=== PATIENT | male | born 1980 | race Native Hawaiian/Other Pacific Islander ===

== ENCOUNTER → 2023-03-21 | Outpatient (CLI) | payer BC ==
[2023-03-21 18:58] LABS: HCT 42.9 % (39.6-50.0); HGB 14.1 g/dL (13.0-17.0); MCH 27.6 pg (27.0-32.0); MCHC 32.9 g/dL (32.0-37.0); Mean Platelet Volume 10.9 FL (9.5-12.2); NRBC Per 100 WBC 0 X 10*3/uL (0.00-0.01); Platelet Count 255 X 10*3/uL (140-440); RBC 5.11 X 10*6/uL (4.40-5.60); RDW 12.7 % (11.5-14.5); WBC 6.43 X 10*3/uL (4.50-10.00)
[2023-03-21 19:01] LABS: Blood Urea Nitrogen 7.7 mg/dL (9.0-27.0)
== END | disposition home or self-care (01) ==
LOC: LABPAT 13:58
PROVIDERS: ATTEND Internal Medicine Interventional Cardiology
DX: Z01.812 Encounter for preprocedural laboratory examination (principal); I25.2 Old myocardial infarction
CPT/HCPCS: 36415; 82565; 84520; 85027

== ENCOUNTER 2023-03-22 09:08 | Day surgery (SDC) | payer BC ==
[2023-03-16 15:58] VITALS: BMI 30.1
[~2023-03-22 09:08] MED LIST: ALPRAZolam 0.25 MG TAB PO PRN; ALPRAZolam 0.5 MG TAB PO PRN; ASPIRIN 325 MG TAB PO STA; HEPARIN SODIUM,PORCINE (1 ML) 2,500 UNIT in SODIUM CHLORIDE 0.9% 250 ML IRRIGATION PRN; HEPARIN SODIUM,PORCINE 10,000 UNIT in SODIUM CHLORIDE 0.9% 1,000 ML IRRIGATION PRN; NITROGLYCERIN SL TABS 0.4 MG TAB SUBLINGUAL PRN; SODIUM CHLORIDE 0.9% 1,000 ML in EMPTY BAG 1 BAG IV SCH
[2023-03-22 09:51] VITALS: RESP 18; TEMP 97.1
[2023-03-22] MEDS ORDERED: HEPARIN SODIUM 1,000 UN/ML (10ML VL) ONE (10:00)
[2023-03-22] MEDS ORDERED: MIDAZOLAM 2 MG/2 ML VIAL IVP ONE (10:10)
[2023-03-22] MEDS ORDERED: LIDOCAINE 1% INJ 10MG/ML (30 ML VIAL-PF) SQ ONE (10:12)
[2023-03-22] MEDS ORDERED: fentaNYL (PF) 50 MCG/ML 2 ML AMP ONE (10:12)
[2023-03-22] MEDS ORDERED: VERAPAMIL SYRINGE (5 MG/10 ML) INTRAARTER ONE (10:14)
[2023-03-22] MEDS ORDERED: fentaNYL (PF) 50 MCG/ML 2 ML AMP IVP ONE (10:14)
[2023-03-22] MEDS: HEPARIN SODIUM 1,000 UN/ML (10ML VL) IV ONE ×2 (10:20→11:03)
[2023-03-22 10:32] LABS: African American GFR (CKD) >90 (>60 ml/min/1.73 sqM); Anion Gap 10 mmol/L; Blood Urea Nitrogen 10 mg/dL (9-20); Calcium 9.1 mg/dL (8.4-10.2); Carbon Dioxide 28 mmol/L (22-30); Chloride 104 mmol/L (98-107); Glucose 106 mg/dL (74-99); Non-African American GFR(CKD) >90 (>60 ml/min/1.73 sqM); Sodium 142 mmol/L (137-145)
[2023-03-22] MEDS ORDERED: IOPAMIDOL-370 100ML BTL INJ ONE ×2 (10:46→11:04)
[2023-03-22] MEDS ORDERED: NITROGLYCERIN 1000MCG/10ML SYRINGE INTRACORON ONE (10:49)
[2023-03-22] MEDS ORDERED: CLOPIDOGREL 75 MG TAB ONE (10:54)
[2023-03-22] MEDS ORDERED: CLOPIDOGREL 75 MG TAB PO ONE (11:04)
[2023-03-22] MEDS ORDERED: SODIUM CHLORIDE 0.9% 1,000 ML IV SCH (12:15)
--- NOTE | 2023-03-22 13:44 | CC ---
PTCA REPORT Date of Service: 03/22/23 PROCEDURES PERFORMED: PTCA and stenting of proximal obtuse marginal branch of circumflex. PERFORMED BY: Dr. Domingo Vera. ANESTHESIA: Moderate conscious sedation time was 50 minutes. Patient was administered Versed and fentanyl. Oxygen saturation, hemodynamics, and EKG were monitored closely. CLINICAL INFORMATION: Mr. Mitchell Trejo is a 43-year-old gentleman who presented on January 30 with acute inferior IN, underwent stenting of a RCA that was totally occluded with a lot of thrombus. He was advised to come back for staged intervention of circumflex which had 80% lesion. There was also a secondary branch coming off the circumflex marginal which was a chronic total occlusion. LAD had noncritical moderate disease. He was advised to have a repeat procedure, brought in for that electively after due discussion with the patient and regarding the risks, benefits, and options. PROCEDURE NOTE: Under strict aseptic precautions and local anesthesia, a 6-Yakut introducer was placed in right radial artery. Using a JR4 diagnostic catheter, I performed selective injection of the right coronary artery noted that it was widely patent with excellent flow. I then turned my attention to the left circumflex coronary artery. Initially, I tried a JL4 guide catheter, but because of extreme tortuosity of the brachiocephalic artery, I had difficulty cannulating it. I then used a Voda 3.5 guide catheter of 6- [place] caliber. With the wire, I was able to cannulate the left coronary artery. A run-through wire was used to cross the lesion. Predilatation was performed with a 2.5 caliber, 12 mm long NC Trek balloon. I then deployed an 18 mm long 3.25 caliber Xience stent in the proximal portion of the lesion. Distally, there was a small area of haziness. This was addressed with a 3.0 caliber 8 mm long Xience stent. Excellent angiographic result was achieved. The patient had chest pain, but no EKG changes. His ACT initially was over 300. Repeat ECT after end of the procedure was 183. The patient's weight is 107 kg and I gave him 7000 units of heparin. Additional 1000 units of heparin was given. He received 225 mg of Plavix. He will be on aspirin and Plavix without interruption for 1 year. Excellent angiographic result without complication was achieved. Results were discussed with the patient and and I expect he will be discharged later on today if he remains stable and he will be seen by Dr. Barker in 1 week. The sheath was taken out and TR band applied as per protocol with saturation in the fingers of the right hand of 96%. MMODL / IJN: [id number] / MTDD
[2023-03-22 16:08] VITALS: BP 139/85; PULSE 75
--- NOTE | 2023-03-23 09:12 | CA ---
Transthoracic Echo Report Name: Mitchell Trejo Age: 43 Gender: M : 1980 Exam Date: 03/22/2023 13:34 Exam Location: [facility] Ht (in): 72 Wt (lb): 236 Ordering Physician: Zhao Vera MD Attending/Referring Phys: Thread Cutter Emily Walker RDCS Procedure CPT: Indications: POST STUDY - LV FUNCTION/WALL MOTION Cardiac Hx: Technical Quality: Fair Contrast 1: Definity Total Dose (mL): 2 Contrast 2: Total Dose (mL): MEASUREMENTS (Male / Female) Normal Values 2D ECHO LV Diastolic Diameter PLAX 4.2 cm 4.2 - 5.9 / 3.9 - 5.3 cm LV Systolic Diameter PLAX 3.3 cm IVS Diastolic Thickness 1.6 cm 0.6 - 1.0 / 0.6 - 0.9 cm LVPW Diastolic Thickness 1.3 cm 0.6 - 1.0 / 0.6 - 0.9 cm LV Relative Wall Thickness 0.7 LV Diastolic Volume MOD BP 103.6 cm??? 67 - 155 / 56 - 104 cm??? LV Systolic Volume MOD BP 59.4 cm??? 22 - 58 / 19 - 49 cm??? LV Ejection Fraction MOD BP 42.7 % >= 55 % LV Cardiac Index MOD BP 1479.2 cm???/min???m??? LV Diastolic Volume MOD 4C 118.3 cm??? LV Systolic Volume MOD 4C 65.5 cm??? LV Ejection Fraction MOD 4C 44.7 % LV Cardiac Index MOD 4C 1768.3 cm???/min???m??? LV Diastolic Length 4C 8.5 cm LV Systolic Length 4C 8.0 cm LV Diastolic Volume MOD 2C 107.8 cm??? LV Systolic Volume MOD 2C 43.3 cm??? LV Ejection Fraction MOD 2C 59.9 % LV Cardiac Index MOD 2C 2158.8 cm???/min???m??? LV Diastolic Length 2C 8.4 cm LV Systolic Length 2C 6.4 cm FINDINGS Left Ventricle Mildly increased left ventricular wall thickness. Left ventricular cavity size normal. Mild inferobasal, basal inferior wall hypokinesis, preserved systolic function. Left ventricular ejection fraction is estimated at 50 -55 %. Right Ventricle Right Atrium Left Atrium Mitral Valve No mitral regurgitation. Aortic Valve Tricuspid Valve Pulmonic Valve Pericardium No pericardial effusion. Aorta CONCLUSIONS Normal LV size. Mild inferobasal and inferoseptal hypokinesia ejection fraction nearly 50%. No mitral regurgitation of significance. No pericardial effusion Previewed by: Dr. Zhao Vera MD (Electronically Signed) Final Date: 23 March 2023 09:11
== END 2023-03-22 16:29 | disposition home or self-care (01) ==
LOC: CATHCVL 09:08 → MERGE 10:30 → CATHCVL 16:29
PROVIDERS: ATTEND Internal Medicine Interventional Cardiology
DX: I25.10 Atherosclerotic heart disease of native coronary artery without angina pectoris (principal); I25.2 Old myocardial infarction; I10 Essential (primary) hypertension; E78.5 Hyperlipidemia, unspecified; F12.90 Cannabis use, unspecified, uncomplicated; F17.210 Nicotine dependence, cigarettes, uncomplicated; Z79.82 Long term (current) use of aspirin; Z79.899 Other long term (current) drug therapy; Z95.5 Presence of coronary angioplasty implant and graft; Z82.49 Family history of ischemic heart disease and other diseases of the circulatory system
CPT/HCPCS: 93308; 80048; C9600; C1887 ×2; C1769 ×2; C1894; C1874 ×2; C1725; J2250; J2001; J3010; Q9957; J1644; Q9967; J2305

== ENCOUNTER → 2023-04-23 | Outpatient (CLI) | payer BC ==
--- NOTE | 2023-04-23 11:22 | P.SLEEP ---
History of Present Illness DATE: 04/23/2023 CONSULTATION/NEW PATIENT EVALUATION HISTORY OF PRESENT ILLNESS/SLEEP-WAKE EVALUATION: 43 year old gentleman had been evaluated in the sleep center for possible obstructive sleep apnea hypopnea syndrome. SLEEP SCHEDULE: Usually sleep schedule from 11 PM to 6:30 AM on weekdays and from 11-12 PM to 7 AM on weekend. FALLING ASLEEP: No problems with falling to sleep. DURING SLEEP: Patient has loud snoring and witnessed by his episodes of stop breathing during the sleep. Patient wakes up from sleep 3 times with nocturia. No history of hypnogogical hallucinations, sleep paralysis, or cataplexy. DURING THE DAY/WAKE STATE: Sometimes patient feels sleepiness at afternoon time. [place] sleepiness scale is 4. Usually patient doesn't take naps. PAST MEDICAL HISTORY: Coronary artery disease, status post PR, hyperlipidemia. PAST SURGICAL HISTORY: Status post stents insertions to coronary arteries in 2022. MEDICATIONS: Lipitor 80 mg once a day, losartan 50 mg once a day, Coreg 6.25 mg twice a day, Plavix 75 mg once a day. SOCIAL HISTORY: Positive history of smoking, no alcohol consumption occasional. FAMILY HISTORY: Coronary artery disease. REVIEW OF SYSTEMS: Loud snoring, multiple awakenings from sleep. No fevers. No double vision. No recent chest pain. No shortness of breath. No abdominal pain. No bleeding episodes. No blood in urine. No seizure episodes. PHYSICAL EXAMINATION: GENERAL: A pleasant patient without any distress. VITAL SIGNS: BP 126/83 , HR 64 , RR 16 , weight 243 pounds, height 6 foot 0 inches, body mass index 32.9, temperature 97.8, oxygen saturation at room air 99% . HEENT: PERRLA, EOMI. Evaluation of oropharynx showed tongue protrudes midline, low position of soft palate Mallampati 4. NECK: Supple. No JVD. Thyroid is not palpable. 19 inches in circumference. LUNGS: Clear to percussion and to auscultation. Good air exchange. No wheezing or rhonchi. HEART: S1, S2 regular. No murmurs, gallops or rubs. ABDOMEN: Soft and nontender. Bowel sounds are present. No organomegaly appreciated. EXTREMITIES: No clubbing or cyanosis. FLAME ANNEALING MACHINE SETTER: Awake, alert, and oriented x3. Cranial nerves 2 to 7 intact. There is no fasciculation or atrophy noted. No focal deficits observed. ASSESSMENT: 1. Loud snoring, witnessed episodes of stop breathing during the sleep, extremely low position of soft palate Mallampati 4, wide neck 19 inches in circumference. Obstructive sleep apnea-hypopnea syndrome. 2. Coronary artery disease, status post PR. 3. Status post 4 stents insertion to coronary artery in 2022. 4. Mild obesity by BMI 32.9. 5 hyperlipidemia. PLAN: 1. Home sleep apnea test for evaluation of patient's breathing during sleep. 2. Following plan after reading sleep study 3. Preferable position during sleep on the side. 4. No driving if patient feels any sleepiness. Patient is aware of civil and criminal liability for unsafe driving. 5. Sleep hygiene with regular sleep time for at least 7.5-8 hours. 6. Watching and losing weight. Thank you very much for referring this patient for consultation. Sincerely, Leroy Lara MD, PhD, FAASM. Diplomat of [employer], Sleep Medicine Board by [employer] [facility] [place] Past Medical History Past Medical History: Coronary Artery Disease (CAD), Hypertension, Myocardial Infarction (PR) Last Myocardial Infarction Date:: 01/30/23 History of Any Multi-Drug Resistant Organisms: None Reported Past Surgical History: Heart Catheterization With Stent, No Surgical Hx Reported Additional Past Surgical History / Comment(s): heart cath with 2 stents (01/30/23) Additional Past Anesthesia/Blood Transfusion Reaction / Comment(s): no anesthesia hx Date of Last Stent Placement:: 01/30/23 Past Psychological History: No Psychological Hx Reported Smoking Status: Former smoker Past Alcohol Use History: Occasional Additional Past Alcohol Use History / Comment(s): smoked occasionally at work, quit smoking 10-12 years ago. Past Drug Use History: Marijuana Additional Drug Use History / Comment(s): occasional marijuana . - Past Family History Father Family Medical History: Congestive Heart Failure (CHF) Additional Family Medical History / Comment(s): hx of crushing chest injury and heart problems after. Medications and Allergies Home Medications Medication Instructions Recorded Confirmed Type Aspirin 81 mg PO DAILY #90 tab 02/01/23 03/22/23 Rx Atorvastatin [Lipitor] 80 mg PO HS #90 tab 02/01/23 03/22/23 Rx Clopidogrel [Plavix] 75 mg PO DAILY 03/16/23 03/22/23 History Losartan [Cozaar] 100 mg PO HS 03/16/23 03/22/23 History carvediloL [Coreg] 3.125 mg PO BID 03/16/23 03/22/23 History Allergies Allergy/AdvReac Type Severity Reaction Status Date / Time ticagrelor [From Brilinta] AdvReac Unknown nose bleed Verified 03/22/23 09:20 for 5 hours Sleep Note - Sleep Note Sleep Note: Temperature: Pulse Rate: Respiratory Rate: Blood Pressure: SpO2: Height: Weight: BMI: Neck Circumference:
== END ==
LOC: 3 N SLEEP 10:19
PROVIDERS: ATTEND Internal Medicine
DX: G47.33 Obstructive sleep apnea (adult) (pediatric) (principal); I25.10 Atherosclerotic heart disease of native coronary artery without angina pectoris; E66.9 Obesity, unspecified; E78.5 Hyperlipidemia, unspecified; I25.2 Old myocardial infarction; F12.90 Cannabis use, unspecified, uncomplicated; Z95.5 Presence of coronary angioplasty implant and graft; Z68.32 Body mass index [BMI] 32.0-32.9, adult; Z88.8 Allergy status to other drugs, medicaments and biological substances; Z79.82 Long term (current) use of aspirin; Z79.02 Long term (current) use of antithrombotics/antiplatelets; Z79.899 Other long term (current) drug therapy
CPT/HCPCS: 99211

== ENCOUNTER → 2023-04-27 | Outpatient (CLI) | payer BC ==
--- NOTE | 2023-05-02 12:26 | P.PCN ---
Description of Procedure: CLINICAL: A home sleep apnea test has been done for confirmation of possible obstructive sleep apnea-hypopnea syndrome. DESCRIPTION OF PROCEDURE: RESULTS: Recording time was 9 hours 34 minutes. Evaluation time was 9 hours 20 minutes. Evaluation time is sufficient for making conclusion about results of the test. Raw data of sleep recording has been reviewed and is adequate. Respiratory channel showed 11 apneas and 39 hypopneas. Apnea-hypopnea index was 5.4 per hour. Pulse rate in the range between minimum 55, maximum 93, average 63 by computer calculation. Lowest desaturation was 88%. IMPRESSION: 1. Obstructive Sleep Apnea Hypopnea Syndrome in mild range. 2. Coronary artery disease, status post 4 stent insertions in 2022. Please see other impressions from consultation. PLAN: 1. The patient will be started on auto-PAP treatment for correction of respiratory abnormallities during sleep. 2. I will see patient for follow up visit to discuss results of the test, evaluate clinical response on treatment with PAP therapy and make any necessary adjustments related to mask fitting, pressure, and humidification. 3. Watching and losing weight. 4. Sleep hygiene with regular time in bed for at least 8 hours. 5. No driving if feeling any sleepiness. Thank you very much for allowing me to participate in the management of your patient. Sincerely, Leroy Lara MD, PhD, FAASM Diplomat of [place] [employer] Sleep Medicine Board of [place] [employer] [facility] [place]
== END ==
LOC: 3 N SLEEP 10:58
PROVIDERS: ATTEND Internal Medicine
DX: G47.33 Obstructive sleep apnea (adult) (pediatric) (principal); I25.10 Atherosclerotic heart disease of native coronary artery without angina pectoris; F12.90 Cannabis use, unspecified, uncomplicated; Z95.5 Presence of coronary angioplasty implant and graft; Z88.8 Allergy status to other drugs, medicaments and biological substances; Z79.82 Long term (current) use of aspirin; Z79.02 Long term (current) use of antithrombotics/antiplatelets

== ENCOUNTER → 2024-07-21 | Outpatient (CLI) | payer BC ==
[2024-07-21 15:34] LABS: Chol/HDL Ratio 3.88 Ratio; LDL Cholesterol,Calculated 69.6 mg/dL (0.0-131.0)
== END | disposition home or self-care (01) ==
LOC: LABWHC1 10:44
PROVIDERS: ATTEND Internal Medicine Clinical Cardiac Electrophysiology
DX: E78.1 Pure hyperglyceridemia (principal)
CPT/HCPCS: 36415; 80061